=== PATIENT | female | born 1990 ===

== ENCOUNTER 2022-05-28 22:46 | Emergency (ER) | payer OTHER, MEDICAID, SELFPAY ==
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
[2022-05-28 23:00] VITALS: BP 122/70; PULSE 109; RESP 18; TEMP 36.6; O2SAT 96
--- NOTE | 2022-05-28 23:20 | PC.NURSE ---
Pt repeatedly states she does not have thoughts or a plan of killing herself, however due to the self inflicted wounds to right wrist and intoxication pt will remain high risk for now
[2022-05-28 23:28] LABS: UR Morphine/Opiate cutoff 300 Negative (Negative); Ur Creatinine 20 (Normal); Ur Specific Gravity 1.025 (Normal); Urine Amphetamines Negative (Negative); Urine Barbiturates Negative (Negative); Urine Benzodiazepines Negative (Negative); Urine Cocaine Negative (Negative); Urine MDMA Negative (Negative); Urine Methadone Negative (Negative); Urine Methamphetamines Negative (Negative); Urine Oxycodone Negative (Negative); Urine Phencyclidine Negative (Negative); Urine Tetrahydrocannabinol Positive (Negative); Urine Tricyclic Antidepressant Negative (Negative); Urine pH 5 (Normal)
[2022-05-28 23:34] LABS: Appearance Urine UA CLEAR; Bilirubin Urine UA NEGATIVE (NEGATIVE); Color Urine UA YELLOW; Glucose Urine UA NEGATIVE (Negative); Ketones Urine UA NEGATIVE (NEGATIVE); Leukocyte Esterase Urine UA NEGATIVE (NEGATIVE); Nitrite Urine UA NEGATIVE (Negative); Occult Blood Urine UA 3+ (Negative); Protein Urine UA NEGATIVE (Negative); Urobilinogen Urine UA 0.2 E.U./dL (0.2)
[2022-05-28] MEDS: LIDO 1%/SOD BICARB 8.4% (10ML) 10 ML SYRINGE (23:35)
[2022-05-28 23:39] LABS: pH Urine UA 5.5 (4.5-8.0)
[2022-05-28 23:41] LABS: Add Manual Diff / Slide Review NO; Basophils Absolute Auto 300 /uL (0-100); Basophils Percent Auto 3.4 % (0-2); Eosinophils Absolute Auto 300 /uL (0-450); Eosinophils Percent Auto 3.9 % (2-4); Hematocrit 39.9 % (36-46); Hemoglobin 13.8 g/dL (12.0-16.0); Lymphocytes Absolute Auto 1300 /uL (1100-4500); Lymphocytes Percent Auto 17.8 % (25-40); Mean Corpuscular HGB Conc 34.7 % (30-36); Mean Corpuscular Hemoglobin 32.9 PG (26-34); Mean Corpuscular Volume 94.7 fL (80-100); Monocytes Absolute Auto 400 /uL (0-900); Monocytes Percent Auto 5.6 % (3-14); Neutrophils Absolute Auto 5200 /uL (1500-7000); Neutrophils Percent Auto 69.3 % (50-75); Platelet Count 224 X10^3/uL (150-400); Red Blood Cell Count 4.21 X10^6/uL (4.0-5.2); Red Cell Distribution Width 13.6 % (11.6-14.8); White Blood Cell Count 7.5 X10^3/uL (4.5-11.0)
[2022-05-28 23:44] LABS: Acetaminophen < 10 ug/mL (10-30); Alanine Aminotransferase 30 IU/L (<35); Albumin 4.6 g/dL (3.5-5.0); Albumin Globulin Ratio 1.6 (1.0-2.8); Alkaline Phosphatase 91 U/L (38-126); Aspartate Aminotransferase 48 IU/L (14-36); BUN Creatinine Ratio 18.2 (6-22); Bilirubin Total 0.3 mg/dL (0.2-1.3); Blood Urea Nitrogen 12 mg/dL (7-17); Calcium 8.6 mg/dL (8.4-10.2); Carbon Dioxide 22 mmol/L (22-32); Chloride 108 mmol/L (98-107); Estimated Glomerular Filt Rate > 60 mL/min (>60); Globulin 2.8 g/dL (1.7-4.1); Glucose 102 mg/dL (70-100); HEMOLYSIS < 15 (0-50); Potassium 3.4 mmol/L (3.4-5.1); Salicylate < 1.0 mg/dL (<20); Sodium 145 mmol/L (137-145); Total Protein 7.4 g/dL (6.3-8.2)
[2022-05-28 23:52] LABS: Ethanol (ETOH) 324 mg/dL
[2022-05-29 00:02] LABS: Bacteria Urine Occasional (0-1); Culture Indicated Urine Cult Not Indicated; RBC Urine 0-1/HPF (0-5/HPF); Squamous Epithelial Cell Urine 0-1 /HPF (0-5/HPF); WBC Urine None Seen (0-5/HPF)
[2022-05-29 00:10] LABS: COVID19 -Nasal RAPID Negative (Negative)
[2022-05-29 00:27] LABS: TSH w/ Reflex to FT4 1.04 uIU/mL (0.47-4.68)
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
--- NOTE | 2022-05-29 01:04 | PC.NURSE ---
Addendum entered by Estefany Steven R.N. 05/29/22 06:13: Pt brought back to ER by Catarino PARSONS at 0100, pt placed into room 13 with mattress on floor and door closed and locked. Order for seclusion obtained. Original Note: Pt brought back to ER by Catarino PARSONS at 0100, pt placed into room 13 with mattress on floor and door closed and locked. Order for seclusion obtained. Pt educated that she will remain in ER as a way to keep her safe until she is sober and a responsible adult can come get her.
[2022-05-29 04:24] VITALS: BP 103/58; PULSE 107; RESP 18; O2SAT 97
--- NOTE | 2022-05-29 06:04 | PC.NURSE ---
pt is sleeping on and off, but pt has eloped from ER this evening.
--- NOTE | 2022-05-29 06:05 | PC.NURSE ---
pt is sleeping on and off, but pt is impulsive and is a high flight risk
--- NOTE | 2022-05-29 06:35 | PC.NURSE ---
pt resting but continues to be a flight risk
--- NOTE | 2022-05-29 07:00 | PC.NURSE ---
pt requested to call son. I told her not at the moment but I would pass that wish on to the
[2022-05-29 07:45] VITALS: BP 110/78; PULSE 87; RESP 17; TEMP 36.8; O2SAT 100
--- NOTE | 2022-05-29 08:16 | PC.NURSE ---
Patient is out of seclusion and understand that if patient is not cooperative staff will call A.P.D. Patient has her cell phone with her in the room. Patient is calm at this time. RN aware.
--- NOTE | 2022-05-29 12:45 | CM.SWNOTE ---
TRANSPORTATION SERVICES REPRESENTATIVE Assessment TRANSPORTATION SERVICES REPRESENTATIVE - Lining Presser Assessment TRANSPORTATION SERVICES REPRESENTATIVE/Lining Presser Assessment Time Spent with Patient Start date 05/29/22 Visit Start Time 12:00 End date 05/29/22 Visit End Time 12:15 Total time Care Management spent on 20 minutes patient visit-in minutes Mental Health Screening Include Onset, Duration, Intensity Presenting Problem Patient presents to ED via EMS due to mother's concern for patient's SI and increased ETOH use yesterday. Patient denies SI and HI but endorses self harm yesterday for a sense of relief. Precipitating Event(s) Patient endorses drama with her son's father and a recent upsetting conversation. Patient states that her mother has not witnessed her engage in self harm before and was alarmed and upset by this and thought patient was trying to end her life. Patient endorses she drank more than normal yesterday due to these triggers. Patient Strengths Patient endorses safety, endorses supports and states that she is open to outpatient resources Current Behavioral Health Provider(s) Patient denies current Include Facility, Provider, Ph. # provider Psych. 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 Patient endorses daily ETOH use but in small amounts. Patient endorses she drank quite a bit yesterday and endorses drinking vodka and beer. Patient's BAL was 324 upon arrival at 2321 yesterday . Patient endorses occasional THC use as well and denies other substances. Family Hx of Behavioral Abuse Patient endorses issues with ex-boyfriend/father of her youngest child. Patient endorses she has custody of her son and ex- threatens to take to take away custody from her. Psychiatric Hospitalizations (date(s)/ No hx location) Psychosocial information & Support Patient is 32 y/o female who Systems resides in [place] with her mother and son. Patient endorses she recently moved in with mother. Patient endorses mother and boyfriend as supports. 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 Legal Concerns Legal Matters - Outstanding Issues None reported Mental Status Orientation (Person/Place/Time) A/Ox4 Stated Mood fine Affect (Congruent with Mood?) tearful at times, euthymic, full range, congruent with mood Thought Content - Specify/Describe None reported Obsessions, Delusions, Hallucinations Thought Processes (Qmrjdcd-Lxavupdy-Lrkh logical/coherent Aoagchmm-Iwgbhxam-Qfpelaxzvy- Qhvgcaojekmoea-Isuqnqe-Gboxsopnwnhe- Thought Blocking) Speech (Gituoj-Smkf-Veeegtm-Rapid-Soft- normal Loud-Pressured) Motor (Yfggfx-Ecsnwgiaw-Tpsy-Other) normal Insight (Dlme-Maqr-Qesq/Limited) fair Judgement (Eyki-Qxtr-Fqiz/Limited) fair Impulse Control (Adequate-Impaired) adequate Memory (Yatgghhty-Qqrlsh-Xqhkrj, intact, not formally assessed Impaired-Intact) Concentration (Intact-Impaired) intact Attention (Intact-Impaired) intact Behavior (Appropriate-Inappropriate) appropriate Additional Comment Patient presents as calm, communicative and cooperative. Risk Assessment Suicidal Ideation (Plan) No Homicidal Ideation (Plan) No Comment Patient denies HI and SI. Patient endorses that she wants to live for her kids and has no desire to kill self. Patient endorses recent self harm cutting to arm last night due to recent life stressors, patient endorses prior to that she cut her arm about 3 weeks ago. Patient endorses that her mother had never seen her harm her self before and mother thought it was intent to kill self. Patient states it was a misunderstanding with mother. Patient endorses she engages in self harm for relief. Intervention Intervention TRANSPORTATION SERVICES REPRESENTATIVE enters room to meet with patient. Patient endorses that she drank more than normal yesterday due to a recent fight and drama with the father of her son/ex-. Patient endorses self harm cutting last evening, and states that mother had concern for patient's SI and/or intent to kill self. Patient denies SI and HI. Patient endorses occasional self harm to seek a sense of relief. Patient endorses her safety to return home. Patient endorses that her mother can pick her up, patient endorses her desire to go home to her son. [facility] [place] patient resources for MH providers that accept her insurance, [facility] tx resources and crisis contacts. It is the opinion of this TRANSPORTATION SERVICES REPRESENTATIVE that patient is safe to discharge with mother when medically clear. TRANSPORTATION SERVICES REPRESENTATIVE reviews the above with ED provider Dr. Flores who indicates agreement and understanding. Plan RA Plan Patient to d/c to home with mother upon medical clearance. Patient to f/u with MH, [facility] and crisis resources. GABE Wylie
[2022-05-29 13:01] VITALS: BP 117/65; PULSE 67; O2SAT 99
== END 2022-05-29 13:30 | disposition home or self-care (01) ==
PROVIDERS: Emergency Provider Emergency Medicine
DX: F10.129 Alcohol abuse with intoxication, unspecified (principal); Y90.8 Blood alcohol level of 240 mg/100 ml or more; S61.512A Laceration without foreign body of left wrist, initial encounter; R45.88 Nonsuicidal self-harm; Z20.822 Contact with and (suspected) exposure to COVID-19
CPT/HCPCS: 12001; 80053; 80305; 80320; 80329; 81001; 81003; 81025; 84443; 85025; 87635; 99285; C9803; G0480